=== PATIENT | female | born 1980 | race Caucasian/White ===

== ENCOUNTER → 2020-02-23 18:02 | Outpatient (CLI) | payer OTHER, SELFPAY ==
--- NOTE | ~2020-02-23 | MM_ITS ---
EXAMINATION: MM screening marely BI w blas HISTORY: Screening mammogram TECHNIQUE: Craniocaudal and mediolateral oblique 3-D tomosynthesis images were obtained and synthetic 2-D images were generated. CAD analysis was submitted and interpreted. COMPARISON: 10/03/2018, 12/13/2005 BREAST PARENCHYMAL COMPOSITION: The breasts are almost entirely fatty. FINDINGS: There is no evidence of suspicious mass, calcification, or architectural distortion to sugg est malignancy in either breast. There has been no suspicious interval change. IMPRESSION: 1. No mammographic evidence of malignancy. 2. Recommend routine screening mammography in one year. BI-RADS Category 1: Negative Reviewed, dictated and finalized at location D. CHANGE TECHNICIAN
== END ==
PROVIDERS: Visit Provider Obstetrics & Gynecology
DX: Z12.31 Encounter for screening mammogram for malignant neoplasm of breast (principal)
CPT/HCPCS: 77063; 77067

== ENCOUNTER → 2021-02-24 10:04 | Outpatient (CLI) | payer OTHER, SELFPAY ==
--- NOTE | ~2021-02-24 | MM_ITS ---
EXAMINATION: MM screening marely BI w blas HISTORY: Screening mammogram TECHNIQUE: Craniocaudal and mediolateral oblique 3-D tomosynthesis images were obtained and synthetic 2-D images were generated. CAD analysis was submitted and interpreted. COMPARISON: 02/24/2020 and 10/03/2018 bilateral screening mammogram examinations BREAST PARENCHYMAL COMPOSITION: There are scattered areas of fibroglandular density. FINDINGS: There is no evidence of suspicious mass, calcification, or architectural distortion to sugg est malignancy in either breast. There has been no suspicious interval change. IMPRESSION: 1. No mammographic evidence of malignancy. 2. Recommend routine screening mammography in one year. BI-RADS Category 1: Negative Reviewed, dictated and finalized at location A. POLISHER
== END ==
PROVIDERS: Visit Provider Obstetrics & Gynecology
DX: Z12.31 Encounter for screening mammogram for malignant neoplasm of breast (principal)
CPT/HCPCS: 77063; 77067

== ENCOUNTER 2021-07-19 08:30 | Outpatient (RCR) | payer OTHER, SELFPAY ==
[2021-05-02 09:01] VITALS: PULSE 80
== END 2021-07-19 10:30 | disposition home or self-care (01) ==
LOC: ANHCPREHAB 08:30
DX: Z48.812 Encounter for surgical aftercare following surgery on the circulatory system (principal)
CPT/HCPCS: 93798

== ENCOUNTER → 2022-04-27 12:26 | Outpatient (CLI) | payer OTHER, SELFPAY ==
--- NOTE | ~2022-04-27 | MM_ITS ---
EXAMINATION: MM screening marely BI w blas HISTORY: Screening TECHNIQUE: Craniocaudal and mediolateral oblique 3-D tomosynthesis images were obtained and synthetic 2-D images were generated. CAD analysis was submitted and interpreted. COMPARISON: Comparison to multiple prior studies sequentially, with oldest reviewed study dated 10/03. BREAST PARENCHYMAL COMPOSITION: There are scattered areas of fibroglandular density. FINDINGS: There is no evidence of suspicious mass, calcification, or architectural distortion to sugg est malignancy in either breast. There has been no suspicious interval change. IMPRESSION: 1. No mammographic evidence of malignancy. 2. Recommend routine screening mammography in one year. BI-RADS Category 1: Negative Reviewed, dictated and finalized at location A. ADVISOR
== END ==
PROVIDERS: PCP Obstetrics & Gynecology; Visit Provider Obstetrics & Gynecology
DX: Z12.31 Encounter for screening mammogram for malignant neoplasm of breast (principal)
CPT/HCPCS: 77063; 77067

== ENCOUNTER → 2023-05-03 07:18 | Outpatient (CLI) | payer OTHER, SELFPAY ==
--- NOTE | ~2023-05-03 | MM_ITS ---
EXAMINATION: MM screening marely BI w blas HISTORY: Screening TECHNIQUE: Craniocaudal and mediolateral oblique 3-D tomosynthesis images were obtained and synthetic 2-D images were generated. CAD analysis was submitted and interpreted. COMPARISON: Comparison to multiple prior studies sequentially, with oldest reviewed study dated 02/22. BREAST PARENCHYMAL COMPOSITION: Breast composed of scattered areas of fibroglandular density FINDINGS: There is no evidence of suspicious mass, calcification, or architectural distortion to sugg est malignancy in either breast. There has been no suspicious interval change. IMPRESSION: 1. No mammographic evidence of malignancy. 2. Recommend routine screening mammography in one year. BI-RADS Category 1: Negative Reviewed, dictated and finalized at location A. ORATE RELATIONS DIRECTOR
== END ==
PROVIDERS: PCP Obstetrics & Gynecology; Visit Provider Obstetrics & Gynecology
DX: Z12.31 Encounter for screening mammogram for malignant neoplasm of breast (principal)
CPT/HCPCS: 77063; 77067

== ENCOUNTER 2024-06-10 13:57 | Outpatient (CLI) | payer OTHER, SELFPAY ==
--- NOTE | ~2024-06-10 | MM_ITS ---
EXAMINATION: MM screening marely BI w blas HISTORY: Screening mammogram TECHNIQUE: Craniocaudal and mediolateral oblique 3-D tomosynthesis images were obtained and synthetic 2-D images were generated. CAD analysis was submitted and interpreted. COMPARISON: 05/03/2023, 04/27/2022, 02/24/2021, 02/23/2020 BREAST PARENCHYMAL COMPOSITION:Not Dense. There are scattered areas of fibroglandular density. FINDINGS: No suspicious mass, calcification, or architectural distortion are identified in either trent ast to suggest malignancy. There has been no suspicious interval change. IMPRESSION: No mammographic evidence of malignancy. Recommend routine screening mammography in one year. BI-RADS Category 1: Negative Reviewed, dictated and finalized at location . ET JACK
== END 2024-06-10 13:58 | disposition home or self-care (01) ==
LOC: MICIMG 13:58
PROVIDERS: PCP Obstetrics & Gynecology; Visit Provider Obstetrics & Gynecology
DX: Z12.31 Encounter for screening mammogram for malignant neoplasm of breast (principal)
CPT/HCPCS: 77063; 77067

== ENCOUNTER 2024-12-22 08:03 | Outpatient (RCR) | payer OTHER, SELFPAY ==
--- NOTE | 2024-12-22 08:21 | OPREHPOC ---
Outpatient Therapy Plan of Care This is a Multidisciplinary Plan of Care that may contain components documented by all disciplines (PT, OT, and ST.) PT Problem 1 PT Problem #1 Knowledge Deficit PT Goal 1 Goal / Goal Update The patient will be independent in a home exercise program. Target Visit 2 PT Problem 2 PT Problem #2 Pain PT Goal 1 Goal / Goal Update The patient will report no greater than 3/10 right knee pain with transition to walking without an AD. Target Visit 8 PT Goal 2 Goal / Goal Update The patient will report no greater than 1/10 right knee pain with return to PLOF. Target Visit 24 PT Problem 3 PT Problem #3 Impaired Range of Motion PT Goal 1 Goal / Goal Update The patient will demonstrate 0-120 degrees right knee AROM to normalize gait and functional mobility. Target Visit 12 PT Problem 4 PT Problem #4 Impaired Functional Mobility PT Goal 1 Goal / Goal Update The patient will demonstrate 25% or less self perceived disability per the LEFS questionnaire. The patient will ambulate 1,200 feet during the 6 MWT without right knee pain to return to community ambulation. Target Visit 24 PT Problem 5 PT Problem #5 Impaired Strength PT Goal 1 Goal / Goal Update The patient will demonstrate 4/5 or greater right knee and hip strength to improve gait and lifting ability for daily activities. Target Visit 24
--- NOTE | 2024-12-22 08:21 | PTOPEVAL1 ---
Assessment and note entered by Elizabeth Watts, PT Evaluation Information Assessment Status Evaluation Diagnosis s/p R ACL Repair ICD-10 Condition Codes (PT) Pain in right knee M25.561,Encounter for other orthopedic aftercare Z47.89 Onset 12/18/24 Subjective Information Glendy Manriquez reports she had her right ACL reconstructed on 12/18/24. She injured her knee in October 03, 2024 when she fell in the shower. She heard a pop and felt immediate pain in her right knee. She was unable to put weight on her right leg. She got crutches and used them for a few days and went to see an research compliance specialist. She had a right ACL tear and had surgery on 12/18/24. She tore the ligament out at the bone so the surgeon was able to reattach it with a button. She is having a lot pain on the inner side of her knee but she had a bone bruise on that side. Reported Pain Level Pain Score 7: Self Report Assessment PT Clinical Summary Glendy Manriquez presents 4 days s/p right ACL repair. She had a button repair to re-attach her ACL at the femur. She has difficulty walking and is using crutches currently. She is unable to work and has difficulty with most daily activities. She demonstrates decreased right knee AROM, impaired gait, impaired balance, decreased right knee strength, right knee edema, and decreased functional mobility. She will benefit from skilled PT to address these limitations and progress her through her post op protocol. Plan of Care Interventions Gait Training,Hot Pack/Cold Pack,Manual Therapy, Neuro Re-education,Patient/Caregiver Education, Therapeutic Activities,Therapeutic Exercise PT Services Indicated Yes Treatment Frequency and 2 times a week for 10 visits Duration These treatments will address the objective and functional deficits as defined above. The patient will be advanced safely and appropriately in order for the patient to progress towards his/her prior level of function. Additional exercises will be introduced and as well as a comprehensive home exercise program upon discharge, if needed, ?to ensure carryover of functional gains achieved in the clinic. This treatment plan has been reviewed and agreement upon by the patient.
--- NOTE | 2025-01-19 09:30 | OPREHPOC ---
Outpatient Therapy Plan of Care This is a Multidisciplinary Plan of Care that may contain components documented by all disciplines (PT, OT, and ST.) PT Problem 1 PT Problem #1 Knowledge Deficit PT Goal 1 Goal / Goal Update The patient will be independent in a home exercise program. Target Visit 2 Progress Met PT Goal 2 Goal / Goal Update continue to progress Target Visit 20 PT Problem 2 PT Problem #2 Pain PT Goal 1 Goal / Goal Update The patient will report no greater than 3/10 right knee pain with transition to walking without an AD. continue Target Visit 8 Progress Not Met PT Goal 2 Goal / Goal Update The patient will report no greater than 1/10 right knee pain with return to PLOF. continue Target Visit 24 Progress Not Met PT Problem 3 PT Problem #3 Impaired Range of Motion PT Goal 1 Goal / Goal Update The patient will demonstrate 0-120 degrees right knee AROM to normalize gait and functional mobility. Target Visit 12 Progress Not Met PT Goal 2 Goal / Goal Update continue Target Visit 24 PT Problem 4 PT Problem #4 Impaired Functional Mobility PT Goal 1 Goal / Goal Update The patient will demonstrate 25% or less self perceived disability per the LEFS questionnaire. The patient will ambulate 1,200 feet during the 6 MWT without right knee pain to return to community ambulation. Target Visit 24 Progress Not Met PT Goal 2 Goal / Goal Update continue PT Problem 5 PT Problem #5 Impaired Strength PT Goal 1 Goal / Goal Update The patient will demonstrate 4/5 or greater right knee and hip strength to improve gait and lifting ability for daily activities. Target Visit 24 Progress Not Met PT Goal 2 Goal / Goal Update continue
--- NOTE | 2025-01-19 09:31 | PTOPPROG ---
Assessment and note entered by Elizabeth Watts, PT Evaluation Information Assessment Status Progress Diagnosis s/p R ACL Repair ICD-10 Condition Codes (PT) Pain in right knee M25.561,Encounter for other orthopedic aftercare Z47.89 Onset 12/18/24 Subjective Information Glendy Manriquez reports her right knee is doing well overall. She is reporting minimal pain except after being up on her feet for long periods she has achiness and swelling. She has been walking with both crutches when she goes to her son's football games and she is in a crowd. She has been using one crutch in her home and occasionally does not use an AD. She has not been driving yet. Assessment PT Clinical Summary Glendy Manriquez is 4.5 weeks s/p right ACL repair. She reports minimal pain in the right knee except after being up on it for long periods. She is utilizing her brace and one crutch for ambulation with occasional no crutch in her home. She is not driving yet. She demonstrates improvements in right knee AROM but remains limited as she was just able to exceed 90 degrees flexion on 01/15/25. She is making steady improvements in strength and gait but again remains limited due to protocol limitations. She was able to ambulate today without an AD and her knee brace open to 90 degrees. She demonstrates decreased rosemary and decreased stance time on the right LE. She was progressed with home exercises consistent with her protocol. She will continue to benefit from skilled PT to further improve her strength, functional mobility, endurance, gait, and knee AROM. Plan of Care Interventions Gait Training,Hot Pack/Cold Pack,Manual Therapy, Neuro Re-education,Patient/Caregiver Education, Therapeutic Activities,Therapeutic Exercise PT Services Indicated Yes Treatment Frequency and continue 2 times a week for 10 visits Duration These treatments will address the objective and functional deficits as defined above. The patient will be advanced safely and appropriately in order for the patient to progress towards his/her prior level of function. Additional exercises will be introduced and as well as a comprehensive home exercise program upon discharge, if needed, ?to ensure carryover of functional gains achieved in the clinic. This treatment plan has been reviewed and agreement upon by the patient.
--- NOTE | 2025-02-23 09:23 | PTOPREEVAL ---
Assessment and note entered by Suellen Devine DPT Evaluation Information Assessment Status Re-evaluation Diagnosis s/p R ACL Repair ICD-10 Condition Codes (PT) Pain in right knee M25.561,Encounter for other orthopedic aftercare Z47.89 Onset 12/18/24 Subjective Information Patient reports that her knee is doing good. She reports she does feel stiffness after sitting for longer periods of time. She reports she is not using her brace at home. She reports no instances of giving out with the brace. She reports doing house work for long periods of time is limited due to pain. She reports when doing stairs she still has to go slow and think about what she is doing. Reported Pain Level Pain Score 0: Self Report Assessment PT Clinical Summary Glendy Manriquez is 9.5 weeks s/p ACL reconstruction and progressing appropriately at this time. She continues to demonstrates improved strength and ROM of the R knee as well as improved ability to ambulate and complete house hold tasks . She continues to be limited in length of time she can complete activies as well as lacks terminal knee extension during terminal stance of gait. She would benefit from continued skilled PT to address remaining impairments and return to PLOF. Plan of Care Interventions Gait Training,Hot Pack/Cold Pack,Manual Therapy, Neuro Re-education,Patient/Caregiver Education, Therapeutic Activities,Therapeutic Exercise PT Services Indicated Yes Treatment Frequency and continue 2 times a week for 10 visits Duration These treatments will address the objective and functional deficits as defined above. The patient will be advanced safely and appropriately in order for the patient to progress towards his/her prior level of function. Additional exercises will be introduced and as well as a comprehensive home exercise program upon discharge, if needed, ?to ensure carryover of functional gains achieved in the clinic. This treatment plan has been reviewed and agreement upon by the patient.
--- NOTE | 2025-03-16 09:27 | OPREHPOC ---
Outpatient Therapy Plan of Care This is a Multidisciplinary Plan of Care that may contain components documented by all disciplines (PT, OT, and ST.) PT Problem 1 PT Problem #1 Knowledge Deficit PT Goal 1 Goal / Goal Update The patient will be independent in a home exercise program. Target Visit 2 Progress Met PT Goal 2 Goal / Goal Update continue to progress Target Visit 40 PT Problem 2 PT Problem #2 Pain PT Goal 1 Goal / Goal Update The patient will report no greater than 3/10 right knee pain with transition to walking without an AD. continue Target Visit 8 Progress Met PT Goal 2 Goal / Goal Update The patient will report no greater than 1/10 right knee pain with return to PLOF. continue Target Visit 40 Progress Partially Met PT Problem 3 PT Problem #3 Impaired Range of Motion PT Goal 1 Goal / Goal Update The patient will demonstrate 0-120 degrees right knee AROM to normalize gait and functional mobility. met for flexion and passive extension, not active Target Visit 12 Progress Partially Met PT Goal 2 Goal / Goal Update The patient will demonstrate 0 degrees right knee extension AROM. Target Visit 40 Progress Partially Met PT Problem 4 PT Problem #4 Impaired Functional Mobility PT Goal 1 Goal / Goal Update The patient will demonstrate 25% or less self perceived disability per the LEFS questionnaire. - met The patient will ambulate 1,200 feet during the 6 MWT without right knee pain to return to community ambulation. -not met Target Visit 29 Progress Partially Met PT Goal 2 Goal / Goal Update continue, progressing Target Visit 40 PT Problem 5 PT Problem #5 Impaired Strength PT Goal 1 Goal / Goal Update The patient will demonstrate 4/5 or greater right knee and hip strength to improve gait and lifting ability for daily activities. Target Visit 29 Progress Partially Met PT Goal 2 Goal / Goal Update continue Target Visit 40
--- NOTE | 2025-03-16 09:27 | PTOPPROG ---
Assessment and note entered by Elizabeth Watts, PT Evaluation Information Assessment Status Progress Diagnosis s/p R ACL Repair ICD-10 Condition Codes (PT) Pain in right knee M25.561,Encounter for other orthopedic aftercare Z47.89 Onset 12/18/24 Subjective Information Pt reports her knee is doing well overall. She has returned to a regular work schedule and is able to perform household tasks with minimal difficulty . She does note difficulty with squatting tasks and going down stairs reciprocally. She has not been wearing her brace at all anymore and she has had no giving out at the knee. She does get occasional sharp pain through the knee and stiffness after prolonged sitting. She feels she still has weakness in her right leg and that makes her hesitant and cautious. Assessment PT Clinical Summary Glendy Manriquez is 12.5 weeks s/p ACL reconstruction and progressing appropriately at this time. She is reporting no pain except an occasional sharp pain. She notes stiffness after prolonged sitting as well. She feels weakness in the right knee and this leads to decreased stair negotiation skills and decreased squatting ability . She demonstrates improved overall strength and ROM in the right knee but she still lacks terminal knee extension, decreased functional strength in the right knee and hip, and altered gait. She will continue to benefit from skilled PT to further address functional strength and gait. She has not started agility or running training portion of her protocol. Plan of Care Interventions Gait Training,Hot Pack/Cold Pack,Manual Therapy, Neuro Re-education,Patient/Caregiver Education, Therapeutic Activities,Therapeutic Exercise PT Services Indicated Yes Treatment Frequency and continue 2 times a week for 8 visits Duration These treatments will address the objective and functional deficits as defined above. The patient will be advanced safely and appropriately in order for the patient to progress towards his/her prior level of function. Additional exercises will be introduced and as well as a comprehensive home exercise program upon discharge, if needed, ?to ensure carryover of functional gains achieved in the clinic. This treatment plan has been reviewed and agreement upon by the patient.
== END 2025-03-22 23:59 | disposition home or self-care (01) ==
LOC: CHSPT 08:03
DX: S89.91XA Unspecified injury of right lower leg, initial encounter (principal); Z98.890 Other specified postprocedural states
CPT/HCPCS: 97110; 97112; 97116; 97140; 97161; 97530